=== PATIENT | female | born 1970 | race Caucasian/White ===

== ENCOUNTER → 2018-11-19 | Outpatient (CLI) | payer SELFPAY ==
[~2018-11-19] VITALS: Ht 152.4 cm; Wt 113.4 kg
[~2018-11-19] MED LIST: CATHETER FLUSH 10 ML SYR IV PRN; REGADENOSON 0.4 MG/5 ML SYR (LEXISCAN) IV ONE
[2018-11-19 10:22] LABS: ALANINE AMINOTRANSFERASE 22 U/L (0-55); ALBUMIN 4.1 GM/DL (3.2-4.5); ALKALINE PHOSPHATASE 64 U/L (40-136); BILIRUBIN,TOTAL 0.2 MG/DL (0.1-1.0); BUN/CREATININE RATIO 18; CALCIUM 9.4 MG/DL (8.5-10.1); CARBON DIOXIDE 28 MMOL/L (21-32); CHLORIDE 103 MMOL/L (98-107); CHOLESTEROL 230 MG/DL (< 200); CREATININE SERUM 0.68 MG/DL (0.60-1.30); GFR ESTIMATED > 60; GLUCOSE 116 MG/DL (70-105); HDL CHOLESTEROL 44 MG/DL (40-60); POTASSIUM 4.5 MMOL/L (3.6-5.0); SODIUM 139 MMOL/L (135-145); TOTAL PROTEIN 7.4 GM/DL (6.4-8.2); TRIGLYCERIDES 203 MG/DL (<150); VLDL CHOLESTEROL 41 MG/DL (5-40)
--- NOTE | 2018-11-19 19:24 | STRESS TEST ---
DATE OF SERVICE: 11/19/2018 LEXISCAN MYOVIEW STRESS TEST REFERRING PHYSICIAN: Dr. Destinee White. Baseline heart rate is 80, baseline blood pressure 155/100. Baseline EKG is sinus rhythm with no ischemic changes. In summary, the patient was injected with 10.56 mCi of technetium-99 Myoview and the resting images were obtained. Then, the patient received 0.4 mg of Lexiscan followed by 31.2 mCi of technetium-99 Myoview. Throughout the test, there were no EKG changes. The resting and stress images were reviewed and compared in the short axis, horizontal long axis, and vertical long axis views. Review of the images showed breast attenuation affecting the quality of the images. There is decreased uptake involving the whole anterior wall, anterolateral wall and inferolateral wall with mild reversibility. SSS is 15, SDS 5. Transient ischemic dilatation with TID value 1.95, on the gated images, the left ventricle appeared to be normal size with normal contractility. Calculated ejection fraction 74%. CONCLUSION: 1. The patient tolerated Lexiscan well. 2. Transient ischemic dilatation with TID value 1.95. 3. Reversible ischemia involving the anterior wall, anterolateral wall and inferolateral wall. 4. Normal left ventricular size with normal contractility. Calculated ejection fraction 74%. Job ID: [id number] DocumentID: [id number] Dictated Date: 11/19/2018 15:59:02 Sales Program Coordinator Date: 11/19/2018 19:23:43 Dictated By: KENAN ROBLERO MD
== END ==
LOC: CARD 08:34
PROVIDERS: ATTEND Internal Medicine Cardiovascular Disease
DX: I25.10 Atherosclerotic heart disease of native coronary artery without angina pectoris (principal); I11.9 Hypertensive heart disease without heart failure; Z72.0 Tobacco use
CPT/HCPCS: 36415; 78452; 80053; 80061; 93017; 93306

== ENCOUNTER → 2019-05-26 | Outpatient (CLI) | payer SELFPAY ==
--- NOTE | 2019-05-26 10:47 | Diagnostic Imaging Report ---
EXAMINATION: Ultrasound noninvasive extremity. INDICATION: Essential hypertension, swelling of legs. The routine images of the lower extremities were obtained. The ankle-brachial index on the right is 0.99 and on the left 0.93 (normal 1.0 or greater). IMPRESSION: The ankle-brachial indices are just below the normal limits. If further evaluation of the arterial blood flow to each lower extremity is desired, then a dedicated bilateral lower extremity arterial Doppler exam should be obtained. Dictated by: Dictated on workstation # [id number]
== END ==
LOC: RAD 09:07
PROVIDERS: ATTEND Nurse Practitioner Family
DX: I10 Essential (primary) hypertension (principal); E78.2 Mixed hyperlipidemia; M79.89 Other specified soft tissue disorders
CPT/HCPCS: 93923

== ENCOUNTER → 2019-08-20 | Outpatient (CLI) | payer SELFPAY ==
--- NOTE | 2019-08-20 10:53 | Diagnostic Imaging Report ---
PROCEDURE: US Bilateral lower extremity arterial. TECHNIQUE: Multiple real-time grayscale images are obtained through both lower extremity arterial systems with color Doppler imaging and color Doppler spectral analysis. INDICATION: Bilateral lower extremity swelling. Predominately triphasic waveforms within bilateral common femoral, superficial femoral and popliteal arteries is noted. Velocities are symmetric bilaterally. No high-grade stenosis or occlusion is seen. There are monophasic waveforms identified bilateral posterior tibial and dorsalis pedis arteries. Anterior tibial arteries are visualized. IMPRESSION: Small vessel disease at the ankles. No high-grade stenosis or occlusion is detected. Dictated by: Dictated on workstation # [id number]
== END ==
LOC: RAD 09:25
PROVIDERS: ATTEND Family Medicine
DX: I73.9 Peripheral vascular disease, unspecified (principal); R60.0 Localized edema; M79.89 Other specified soft tissue disorders
CPT/HCPCS: 93925